=== PATIENT | male | born 1950 | race Caucasian/White ===

== ENCOUNTER 2017-03-09 10:53 | Emergency (ER) | payer OTHER ==
[~2017-03-09] VITALS: Ht 175.3 cm; Wt 135.0 kg
[~2017-03-09 10:53] MED LIST: AMLO5 PO; ASPI325T PO; LANO0.1212 PO; METF500 PO; METO50TA PO
[2017-03-09 11:03] VITALS: BP 150/99; PULSE 102; RESP 20; TEMP 98.2; O2SAT 96
[2017-03-09] MEDS ORDERED: SODIUM CHLOR 0.9% 1000 ML INJ 1,000 ML IV SCH (11:24)
[2017-03-09] MEDS ORDERED: SODIUM CHLORIDE 0.9% FLUSH 10 ML FLUSH IV FLUSH PRN (11:30)
--- NOTE | 2017-03-09 11:31 | PD ---
HPI Chief Complaint: Fall Time Seen by Provider: 11:31 Travel History International Travel<30 days: No Contact w/Intl Traveler<30days: No Traveled to known affect area: No History of Present Illness HPI 67-year-old male with a history of hypertension, atrial fibrillation, diabetes and alcohol abuse is brought to the emergency department for evaluation of trip and fall. The patient states he sprays bug spray in his apartment and was walking from his kitchen to his bedroom and slipped on a wet spot on the tile falling onto his left side. States that he landed on his left knee, left hip and left elbow. States he also landed on his left side and is having some left rib pain. Denies head trauma or loss of consciousness. He states that he did drink a pitcher of beer this morning which he drinks every morning. He denies any anticoagulation. He is complaining of pain in his left knee, left hip, left rib, left elbow and left shoulder. Denies any numbness or tingling, weakness, fever, chills, nausea, vomiting, shortness of breath, difficulty breathing. No other complaints. PFSH Past Medical History Arthritis: Yes Autoimmune Disease: No Blood Disorders: No Anxiety: Yes (PTSD) Depression: No Heart Rhythm Problems: Yes (AFIB, A FLUTTER) Cancer: No Cardiac Catheterization: Yes (Afib) Cardiovascular Problems: Yes High Cholesterol: Yes Chemotherapy: No Chest Pain: No Congestive Heart Failure: No Cerebrovascular Accident: No Diabetes: Yes Patient Takes Glucophage: No Diminished Hearing: No Endocrine: No Gastrointestinal Disorders: Yes (HX POLYPS) Genitourinary: Yes (ENLARGED PROSTATE) Headaches: No Hypertension: Yes Immune Disorder: No Implanted Vascular Access Dvce: No Musculoskeletal: Yes (RIGHT UPPER ARM REPAIR WITH NERVE DAMAGE REPAIR, WC INJ L LEG MUSCLE TEAR) Neurologic: No Psychiatric: Yes Reproductive: No Respiratory: No Immunizations Current: No Migraines: No Radiation Therapy: No Seizures: No Thyroid Disease: No PNEUMOCCOCAL Vaccine (Year): 1 Past Surgical History Abdominal Surgery: No Cardiac Surgery: No Ear Surgery: No Endocrine Surgery: No Eye Surgery: No Genitourinary Surgery: No Neurologic Surgery: No Oral Surgery: Yes Thoracic Surgery: No Other Surgery: Yes (RIGHT ARM, left lower ext. faciatomy.) Social History Alcohol Use: Yes (daily today at 0630 a pitcher) Tobacco Use: No Substance Use: Yes (natty cortes) Allergies-Medications (Allergen,Severity, Reaction): Coded Allergies: Levemir (Verified Allergy, Severe, INTERNAL BLEEDING ACCORDING TO PATIENT , 07/21/16) Reported Meds & Prescriptions Reported Meds & Active Scripts Active Reported Metoprolol Tartrate 50 Mg Tab 50 Mg PO BID Norvasc (Amlodipine Besylate) 5 Mg Tab 5 Mg PO DAILY Lanoxin (Digoxin) 0.125 Mg Tab 0.125 Mg PO DAILY Glucophage (Metformin HCl) 500 Mg Tab 500 Mg PO BIDPC With meals Aspirin 325 Mg Tab 325 Mg PO DAILY Review of Systems Except as stated in HPI: all other systems reviewed are Neg Physical Exam Narrative GENERAL: Obese male patient patient in no acute distress. SKIN: No obvious lacerations or abrasions noted. HEAD: Normocephalic and atraumatic. No bony point tenderness or crepitus noted throughout the scalp and facial bones. EYES: No scleral icterus, injection, or drainage. PERRLA. EOMI. No hyphema present. ENT: No septal hematoma or hemotympanum noted. Oropharynx is clear and the airway is patent. NECK: Supple and the trachea is midline. No obvious deformities, crepitus, or midline tenderness noted. CARDIOVASCULAR: Regular rate and rhythm. RESPIRATORY: Breath sounds are equal bilaterally with no accessory muscle use, wheezing, rhonchi, or crackles. Tenderness to palpation of left anterior lower rib. No obvious deformities or step-offs. GASTROINTESTINAL: Tenderness to palpation left upper quadrant. Abdomen is soft , non-tender, and nondistended. MUSCULOSKELETAL: Painful range of motion in the left knee and hip. Decreased range of motion in the left elbow due to pain. No obvious deformities, cyanosis , or ecchymosis is present throughout the upper and lower extremities. Patient has full range of motion without any signs of neurovascular compromise. BACK: Nontender without any obvious deformities, bony point tenderness, or crepitus noted throughout the thoracic and lumbar vertebrae. NEUROLOGICAL: Awake, alert, and oriented. Normal speech and gait. Cranial nerves are grossly intact. Data Data Last Documented VS Vital Signs Date Time Temp Pulse Resp B/P Pulse Ox O2 Delivery O2 Flow Rate FiO2 03/09/17 11:03 98.2 102 20 150/[address] Brain W/O Iv Contrast(Rout) (03/09/17 11:24) Ct Cerv Spine W/O Contrast (03/09/17 11:24) Complete Blood Count With Diff (03/09/17 11:24) Comprehensive Metabolic Panel (03/09/17 11:24) Iv Access Insert/Monitor (03/09/17 11:24) Ecg Monitoring (03/09/17 11:24) Oximetry (03/09/17 11:24) Sodium Chloride 0.9% Flush (Ns Flush) (03/09/17 11:30) Alcohol (Ethanol) (03/09/17 11:24) Humerus (Min 2vws) (03/09/17 11:24) Knee, Complete (4vws) (03/09/17 11:24) Chest, Single Ap (03/09/17 11:24) Hip, Uni(Ap&Lat) Wo Ap Pelvis (03/09/17 ) Ct Abd/Pel W Iv Contrast(Rout) (03/09/17 11:24) Sodium Chlor 0.9% 1000 Ml Inj (Ns 1000 M (03/09/17 11:24) Apply Cervical Collar (03/09/17 11:24) Elbow, Limited (Ap&Lat) (03/09/17 11:24) Morphine Inj (Morphine Inj) (03/09/17 12:45) Ondansetron Inj (Zofran Inj) (03/09/17 12:45) Iohexol 350 Inj (Omnipaque 350 Inj) (03/09/17 13:03) Splint Or Brace Apply/Monitor (03/09/17 13:22) Labs Laboratory Tests Test 03/09/17 11:20 White Blood Count 8.1 TH/MM3 Red Blood Count 4.80 MIL/MM3 Hemoglobin 15.7 GM/DL Hematocrit 45.0 % Mean Corpuscular Volume 93.7 FL Mean Corpuscular Hemoglobin 32.7 PG Mean Corpuscular Hemoglobin 34.8 % Concent Red Cell Distribution Width 16.3 % Platelet Count 159 TH/MM3 Mean Platelet Volume 7.4 FL Neutrophils (%) (Auto) 69.1 % Lymphocytes (%) (Auto) 21.3 % Monocytes (%) (Auto) 6.9 % Eosinophils (%) (Auto) 1.3 % Basophils (%) (Auto) 1.4 % Neutrophils # (Auto) 5.6 TH/MM3 Lymphocytes # (Auto) 1.7 TH/MM3 Monocytes # (Auto) 0.6 TH/MM3 Eosinophils # (Auto) 0.1 TH/MM3 Basophils # (Auto) 0.1 TH/MM3 CBC Comment AUTO DIFF Differential Comment AUTO DIFF CONFIRMED Sodium Level 130 MEQ/L Potassium Level 4.0 MEQ/L Chloride Level 90 MEQ/L Carbon Dioxide Level 26.8 MEQ/L Anion Gap 13 MEQ/L Blood Urea Nitrogen 10 MG/DL Creatinine 1.09 MG/DL Estimat Glomerular Filtration 67 ML/MIN Rate Random Glucose 256 MG/DL Calcium Level 9.0 MG/DL Total Bilirubin 0.5 MG/DL Aspartate Amino Transf 43 U/L (AST/SGOT) Alanine Aminotransferase 69 U/L (ALT/SGPT) Alkaline Phosphatase 66 U/L Total Protein 7.6 GM/DL Albumin 3.8 GM/DL Ethyl Alcohol Level 72 MG/DL [facility] Medical Decision Making Medical Screen Exam Complete: Yes Emergency Medical Condition: Yes Differential Diagnosis Fracture versus contusion versus sprain versus intracranial hemorrhage Narrative Course 67-year-old male is brought to the emergency department by EMS for evaluation of slip and fall onto his left side. No intraoral loss of consciousness. Patient is afebrile, vital signs are stable. No focal neurologic deficits. He is an alcoholic who drinks alcohol daily. X-ray and CT imaging has been ordered and is pending. He has some left upper quadrant tenderness so we'll do a CT of the abdomen and pelvis to rule out any splenic injury. CBC is unremarkable. CMP shows hyponatremia with a sodium of 130, likely secondary to chronic alcohol use. Hyperglycemia with a glucose of 256. Coags are unremarkable. EtOH is 72. Chest x-ray is unremarkable. Left humerus x-ray is negative. Left knee x-ray shows chondrocalcinosis and degenerative changes, no acute abnormalities. Left hip x-ray is negative for any acute abnormalities. Left elbow x-ray shows minimally displaced intra-articular radial head fracture. CT of the abdomen and pelvis with IV contrast shows contracted bladder with cholelithiasis and mural calcification. A padded megaly and hepatic steatosis. Atherosclerosis. Diverticulosis. No acute abnormalities. Head CT is negative. CT of cervical spine is negative. Patient has remained stable and without complaint or here in the emergency department. Patient is placed in a posterior long-arm splint. I discussed case with my attending physician Dr. Hernandes who agrees it is appropriate to splint the patient and have him follow-up as an outpatient with orthopedist. Patient verbalies understanding and agreement with treatment plan. Diagnosis Primary Impression: Left elbow fracture Qualified Code: S42.402A - Left elbow fracture, closed, initial encounter Additional Impression: Fall Qualified Code: W19.XXXA - Fall, initial encounter Referrals: Orthopedist Patient Instructions: Elbow Fracture in Adults (ED), General Instructions Additional Instructions: Splint. Apply ice for 20 minutes on, 20 minutes off. Take medication as prescribed with food and a full glass of water. Do not take Lortab with alcohol or while driving. Follow-up with an orthopedist in the next 1-2 weeks. Return to the ED for any acute worsening of symptoms. Med/Other Pt SpecificInfo: Prescription(s) given Scripts Hydrocodone-Acetaminophen (Lortab)5-325 Mg Tab1 Tab PO Q6H PRN (PAIN GREATER THAN 6) #20 TAB Ref 0 Prov:Dori Hernandes MD 03/09/17 Disposition: 01 DISCHARGE HOME Condition: Stable Mimi Luz Mar 09, 2017 11:31
[2017-03-09 11:43] LABS: AUTOMATED NEUTROPHIL # 5.6 TH/MM3 (1.8-7.7); BASOPHIL # 0.1 TH/MM3 (0-0.2); BASOPHIL % 1.4 % (0.0-2.0); EOSINOPHIL # 0.1 TH/MM3 (0-0.4); EOSINOPHIL % 1.3 % (0.0-4.0); LYMPH % 21.3 % (9.0-44.0); LYMPHOCYTE # 1.7 TH/MM3 (1.0-4.8); MEAN CELL VOLUME 93.7 FL (80.0-100.0); MEAN CORPUSCULAR HEMOGLOBIN 32.7 PG (27.0-34.0); MEAN CORPUSCULAR HGB CONC 34.8 % (32.0-36.0); MONO % 6.9 % (0.0-8.0); NEUT % 69.1 % (16.0-70.0); PLATELET COUNT 159 TH/MM3 (150-450); RED CELL DISTRIBUTION WIDTH 16.3 % (11.6-17.2); WHITE BLOOD COUNT 8.1 TH/MM3 (4.0-11.0)
[2017-03-09 11:57] LABS: HEMO FLAGS AUTO DIFF
[2017-03-09 12:06] LABS: ALT (GPT) 69 U/L (12-78); ANION GAP 13 MEQ/L (5-15); AST (GOT) 43 U/L (15-37); BICARBONATE 26.8 MEQ/L (21.0-32.0); BLOOD UREA NITROGEN 10 MG/DL (7-18); CHLORIDE 90 MEQ/L (98-107); GLOMERULAR FILTRATION RATE 67 ML/MIN (>89); SODIUM (NA) 130 MEQ/L (136-145)
[2017-03-09 12:09] LABS: ALKALINE PHOSPHATASE 66 U/L (45-117); TOTAL BILIRUBIN ADULT 0.5 MG/DL (0.2-1.0)
[2017-03-09 12:25] LABS: SCAN/DIFF AUTO DIFF CONFIRMED
[2017-03-09] MEDS ORDERED: ONDANSETRON HCL 4 MG/2 ML VIAL IV PUSH ONE (12:45)
[2017-03-09] MEDS ORDERED: MORPHINE SULFATE 4 MG/ML INJ IV PUSH ONE (12:45)
--- NOTE | 2017-03-09 12:53 | RADRPT ---
EXAM DATE/TIME: 03/09/2017 12:18 [facility] COMPARISON: No previous studies available for comparison. INDICATIONS : Left hip pain, fall. MEDICAL HISTORY : None. SURGICAL HISTORY : None. ENCOUNTER: Initial ACUITY: 1 day PAIN SCORE: 8/10 LOCATION: Left proximal hip FINDINGS: Normal bone density. Mild joint space narrowing and acetabular osteophyte formation. No fractures. CONCLUSION: No acute disease. Mak Blair MD on March 09, 2017 at 12:50 Board Certified Radiologist. This report was verified electronically.
--- NOTE | 2017-03-09 12:58 | RADRPT ---
EXAM DATE/TIME: 03/09/2017 12:22 [facility] COMPARISON: No previous studies available for comparison. INDICATIONS : Left knee pain, fall. MEDICAL HISTORY : None. SURGICAL HISTORY : None. ENCOUNTER: Initial ACUITY: 1 day PAIN SCORE: 8/10 LOCATION: Left lateral knee FINDINGS: Chondrocalcinosis at the medial and lateral tibiofemoral compartments with mild narrowing of the medi al tibiofemoral compartment and marginal osteophyte formation of the medial tibial plateau and latera l tibial plateau, spurring of the tibial spines. No significant effusion. Enthesophyte formation at t he quadriceps insertion on the superior pole of the patella. Popliteal artery calcifications. CONCLUSION: Chondrocalcinosis and degenerative changes. Mak Blair MD on March 09, 2017 at 12:56 Board Certified Radiologist. This report was verified electronically.
--- NOTE | 2017-03-09 12:58 | RADRPT ---
EXAM DATE/TIME: 03/09/2017 12:10 [facility] COMPARISON: No previous studies available for comparison. INDICATIONS : Left humerus pain, fall. MEDICAL HISTORY : None. SURGICAL HISTORY : None. ENCOUNTER: Initial ACUITY: 1 day PAIN SCORE: 10/10 LOCATION: Left distal humerus FINDINGS: Two view examination of the left humerus demonstrates no evidence of fracture or dislocation. Bony m ineralization is normal. The soft tissue structures are intact. CONCLUSION: No acute disease. Mak Blair MD on March 09, 2017 at 12:56 Board Certified Radiologist. This report was verified electronically.
--- NOTE | 2017-03-09 13:02 | RADRPT ---
EXAM DATE/TIME: 03/09/2017 11:59 [facility] COMPARISON: CHEST SINGLE AP, February 24, 2016, 2:45. INDICATIONS : Shortness of breath post fall. MEDICAL HISTORY : None. SURGICAL HISTORY : None. ENCOUNTER: Initial ACUITY: 1 day PAIN SCORE: 0/10 LOCATION: Bilateral chest FINDINGS: A single view of the chest demonstrates the lungs to be symmetrically aerated without evidence of mas s, infiltrate or effusion. The cardiomediastinal contours are unremarkable. Osseous structures are intact. CONCLUSION: No acute disease. Judd Kendrick MD on March 09, 2017 at 12:54 Board Certified Radiologist. This report was verified electronically.
[2017-03-09] MEDS ORDERED: IOHEXOL 350 MG/ML 10 ML VIAL (for RAD DIAG) IV ONE (13:03)
--- NOTE | 2017-03-09 13:10 | RADRPT ---
EXAM DATE/TIME: 03/09/2017 12:49 [facility] COMPARISON: CT BRAIN W/O CONTRAST, June 10, 2016, 16:15. INDICATIONS : Slip and fall today, landed on left side RADIATION DOSE: 58.50 CTDIvol (mGy) MEDICAL HISTORY : Cardiovascular disease. Enlarged prostate, history of gastro polyps SURGICAL HISTORY : None. ENCOUNTER: Initial ACUITY: 1 day PAIN SCALE: 3/10 LOCATION: cranial TECHNIQUE: Multiple contiguous axial images were obtained of the head. Using automated exposure control and adj ustment of the mA and/or kV according to patient size, radiation dose was kept as low as reasonably a chievable to obtain optimal diagnostic quality images. DICOM format image data is available electro nically for review and comparison. FINDINGS: CEREBRUM: The ventricles are normal for age. No evidence of midline shift, mass lesion, hemorrhage or acute in farction. No extra-axial fluid collections are seen. POSTERIOR FOSSA: The cerebellum and brainstem are intact. The 4th ventricle is midline. The cerebellopontine angle i s unremarkable. EXTRACRANIAL: The visualized portion of the orbits is intact. SKULL: The calvaria is intact. No evidence of skull fracture. CONCLUSION: Normal examination. Mak Blair MD on March 09, 2017 at 13:07 Board Certified Radiologist. This report was verified electronically.
--- NOTE | 2017-03-09 13:10 | RADRPT ---
EXAM DATE/TIME: 03/09/2017 12:10 [facility] COMPARISON: No previous studies available for comparison. INDICATIONS : Left elbow pain, fall. MEDICAL HISTORY : None. SURGICAL HISTORY : None. ENCOUNTER: Initial ACUITY: 1 day PAIN SCORE: 10/10 LOCATION: Left medial elbow FINDINGS: There is a minimally displaced intra-articular radial head fracture. The lateral view also reveals a lucency overlying the region of the coronoid process which could also be a nondisplaced fracture. The re is a small joint effusion. There is some ossification at the insertion of the triceps tendon and a lso some lateral ligamentous ossification consistent with prior injury. CONCLUSION: Minimally displaced fractures as described Claude Zambrano MD on March 09, 2017 at 12:57 Board Certified Radiologist. This report was verified electronically.
--- NOTE | 2017-03-09 13:14 | RADRPT ---
EXAM DATE/TIME: 03/09/2017 12:58 [facility] COMPARISON: CT ABDOMEN & PELVIS W CONTRAST, July 28, 2014, 2:14. INDICATIONS : Slip and fall today, left side pain IV CONTRAST: 84 cc Omnipaque 350 (iohexol) IV ORAL CONTRAST: No oral contrast ingested. RADIATION DOSE: 22.57 CTDIvol (mGy) MEDICAL HISTORY : Cardiovascular disease. Enlarged prostate, gastro polyps SURGICAL HISTORY : None. ENCOUNTER: Initial ACUITY: 1 day PAIN SCALE: 4/10 LOCATION: Left upper quadrant and lower quardant TECHNIQUE: Volumetric scanning of the abdomen and pelvis was performed. Using automated exposure control and ad justment of the mA and/or kV according to patient size, radiation dose was kept as low as reasonably achievable to obtain optimal diagnostic quality images. DICOM format image data is available electro nically for review and comparison. FINDINGS: There is hepatomegaly and hepatic steatosis. The gallbladder is contracted and there is cholelithiasi s identified and possible mural calcification. The kidneys, adrenal glands, spleen, pancreas are unre markable. Urinary bladder unremarkable. Calcifications of the vas deferens. Prostate unremarkable. Di verticulosis of the sigmoid and descending colon without diverticulitis. No obstruction, free fluid o r free air. No adenopathy or aneurysm. Scattered atherosclerotic calcifications. Lung bases are clear . Degenerative changes of the spine are noted. CONCLUSION: 1. Contracted gallbladder with cholelithiasis and mural calcification. 2. Hepatomegaly and hepatic steatosis. 3. Atherosclerosis. 4. Diverticulosis. Mak Blair MD on March 09, 2017 at 13:09 Board Certified Radiologist. This report was verified electronically.
--- NOTE | 2017-03-09 13:35 | RADRPT ---
EXAM DATE/TIME: 03/09/2017 12:49 [facility] COMPARISON: CT CERVICAL SPINE W/O CONTRAST, June 10, 2016, 16:17. INDICATIONS : Slip and fall today, landed on his left side RADIATION DOSE: 23.05 CTDIvol (mGy) MEDICAL HISTORY : Cardiovascular disease. Enlarged prostate, gastro polyps SURGICAL HISTORY : None. ENCOUNTER: Initial ACUITY: 1 day PAIN SCALE: 3/10 LOCATION: Left neck TECHNIQUE: Volumetric scanning of the cervical spine was performed. Multiplanar reconstructions in the sagittal, coronal and oblique axial planes were performed. Using automated exposure control and adjustment o f the mA and/or kV according to patient size, radiation dose was kept as low as reasonably achievable to obtain optimal diagnostic quality images. DICOM format image data is available electronically f or review and comparison. FINDINGS: Degenerative changes are again noted throughout the cervical spine. Scoliosis of the cervical spine is also noted. There is no acute fracture or prevertebral soft tissue swelling. The bony relationsh ip and alignment between C1 and C2 is well-maintained. Moderate bilateral foraminal narrowing is not ed at C3-4 and C4-5 as well as C6-7. Moderate right neural foraminal narrowing is noted at C5-6 and C2-3. CONCLUSION: 1. No acute fracture or prevertebral soft tissue swelling. 2. Moderate bilateral foraminal narrowing at C3-4, C4-5 and C6-7 and moderate right neural foraminal narrowing at C2-3 and C5-6. 3. Diffuse cervical spondylosis and scoliosis which are stable. Judd Kendrick MD on March 09, 2017 at 13:18 Board Certified Radiologist. This report was verified electronically.
[2017-03-09] MEDS ORDERED: HYDR-3533 PO (13:43)
[2017-03-09 14:11] VITALS: BP 176/110; PULSE 110; RESP 18; O2SAT 96
--- NOTE | 2017-03-09 14:15 | PD ---
Physical Exam Narrative GENERAL: Well-nourished, well-developed patient. SKIN: Warm and dry. HEAD: Normocephalic EYES: No injection or drainage. ENT: No nasal drainage noted. NECK: Supple, trachea midline. No pain in midline CARDIOVASCULAR: Regular rate and rhythm RESPIRATORY: Breath sounds equal bilaterally. No accessory muscle use. GASTROINTESTINAL: Abdomen soft, tender epigastric, nondistended. Chest wall: tender to left lower rib EXTREMITIES: Pain with palpation of left elbow, no pain with other joints , neurovascularly intact, no lacerations over, compartments soft. NEUROLOGICAL: Awake and alert. Motor and sensory grossly within normal limits. Normal speech. Data Data Last Documented VS Vital Signs Date Time Temp Pulse Resp B/P Pulse Ox O2 Delivery O2 Flow Rate FiO2 03/09/17 14:11 110 18 176/110 96 Room Air 03/09/17 11:[address] Brain W/O Iv Contrast(Rout) (03/09/17 11:24) Ct Cerv Spine W/O Contrast (03/09/17 11:24) Complete Blood Count With Diff (03/09/17 11:24) Comprehensive Metabolic Panel (03/09/17 11:24) Iv Access Insert/Monitor (03/09/17 11:24) Ecg Monitoring (03/09/17 11:24) Oximetry (03/09/17 11:24) Sodium Chloride 0.9% Flush (Ns Flush) (03/09/17 11:30) Alcohol (Ethanol) (03/09/17 11:24) Humerus (Min 2vws) (03/09/17 11:24) Knee, Complete (4vws) (03/09/17 11:24) Chest, Single Ap (03/09/17 11:24) Hip, Uni(Ap&Lat) Wo Ap Pelvis (03/09/17 ) Ct Abd/Pel W Iv Contrast(Rout) (03/09/17 11:24) Sodium Chlor 0.9% 1000 Ml Inj (Ns 1000 M (03/09/17 11:24) Apply Cervical Collar (03/09/17 11:24) Elbow, Limited (Ap&Lat) (03/09/17 11:24) Morphine Inj (Morphine Inj) (03/09/17 12:45) Ondansetron Inj (Zofran Inj) (03/09/17 12:45) Iohexol 350 Inj (Omnipaque 350 Inj) (03/09/17 13:03) Splint Or Brace Apply/Monitor (03/09/17 13:22) Labs Laboratory Tests Test 03/09/17 11:20 White Blood Count 8.1 TH/MM3 Red Blood Count 4.80 MIL/MM3 Hemoglobin 15.7 GM/DL Hematocrit 45.0 % Mean Corpuscular Volume 93.7 FL Mean Corpuscular Hemoglobin 32.7 PG Mean Corpuscular Hemoglobin 34.8 % Concent Red Cell Distribution Width 16.3 % Platelet Count 159 TH/MM3 Mean Platelet Volume 7.4 FL Neutrophils (%) (Auto) 69.1 % Lymphocytes (%) (Auto) 21.3 % Monocytes (%) (Auto) 6.9 % Eosinophils (%) (Auto) 1.3 % Basophils (%) (Auto) 1.4 % Neutrophils # (Auto) 5.6 TH/MM3 Lymphocytes # (Auto) 1.7 TH/MM3 Monocytes # (Auto) 0.6 TH/MM3 Eosinophils # (Auto) 0.1 TH/MM3 Basophils # (Auto) 0.1 TH/MM3 CBC Comment AUTO DIFF Differential Comment AUTO DIFF CONFIRMED Sodium Level 130 MEQ/L Potassium Level 4.0 MEQ/L Chloride Level 90 MEQ/L Carbon Dioxide Level 26.8 MEQ/L Anion Gap 13 MEQ/L Blood Urea Nitrogen 10 MG/DL Creatinine 1.09 MG/DL Estimat Glomerular Filtration 67 ML/MIN Rate Random Glucose 256 MG/DL Calcium Level 9.0 MG/DL Total Bilirubin 0.5 MG/DL Aspartate Amino Transf 43 U/L (AST/SGOT) Alanine Aminotransferase 69 U/L (ALT/SGPT) Alkaline Phosphatase 66 U/L Total Protein 7.6 GM/DL Albumin 3.8 GM/DL Ethyl Alcohol Level 72 MG/DL [facility] Supervised Visit with JAJA: Yes Interpretation(s) CBC & BMP Diagram 03/09/17 11:20 Last 24 hours Impressions Knee X-Ray 03/09/17 1124 Signed Impressions: Service Date/Time: Thursday, March 09, 2017 12:22 - CONCLUSION: Chondrocalcinosis and degenerative changes. Mak Blair MD Humerus X-Ray 03/09/17 1124 Signed Impressions: Service Date/Time: Thursday, March 09, 2017 12:10 - CONCLUSION: No acute disease. Mak Blair MD Head CT 03/09/17 1124 Signed Impressions: Service Date/Time: Thursday, March 09, 2017 12:49 - CONCLUSION: Normal examination. Mak Blair MD Elbow X-Ray 03/09/171123 Signed Impressions: Service Date/Time: Thursday, March 09, 2017 12:10 - CONCLUSION: Minimally displaced fractures as described Claude Zambrano MD Chest X-Ray 03/09/171123 Signed Impressions: Service Date/Time: Thursday, March 09, 2017 11:59 - CONCLUSION: No acute disease. Judd Kendrick MD Abdomen/Pelvis CT 03/09/171123 Signed Impressions: Service Date/Time: Thursday, March 09, 2017 12:58 - CONCLUSION: 1. Contracted gallbladder with cholelithiasis and mural calcification. 2. Hepatomegaly and hepatic steatosis. 3. Atherosclerosis. 4. Diverticulosis. Mak Blair MD Hip X-Ray 03/09/17 0000 Signed Impressions: Service Date/Time: Thursday, March 09, 2017 12:18 - CONCLUSION: No acute disease. Mak Blair MD Narrative Course I, Dr. hernandes, have reviewed the advance practice practitioner's documentation and am in agreement, met with the patient face to face, made the diagnosis, and the medical decision making was done by me. *My assessment and Findings: 67-year-old male presents status post fall with left elbow, left rib, left abdominal pain. Imaging reviewed which shows radial head fracture. Splint place. Patient denies new complaints. Clinically sober to discharge. Diagnosis Primary Impression: Left elbow fracture Qualified Code: S42.402A - Left elbow fracture, closed, initial encounter Additional Impression: Fall Qualified Code: W19.XXXA - Fall, initial encounter Referrals: Orthopedist Patient Instructions: General Instructions, Elbow Fracture in Adults (ED) Additional Instruction: Splint. Apply ice for 20 minutes on, 20 minutes off. Take medication as prescribed with food and a full glass of water. Do not take Lortab with alcohol or while driving. Follow-up with an orthopedist in the next 1-2 weeks. Return to the ED for any acute worsening of symptoms. Med/Other Pt SpecificInfo: Prescription(s) given Scripts Hydrocodone-Acetaminophen (Lortab)5-325 Mg Tab1 Tab PO Q6H PRN (PAIN GREATER THAN 6) #20 TAB Ref 0 Prov:Dori Hernandes MD 03/09/17 Disposition: 01 DISCHARGE HOME Condition: Stable Dori Hernandes MD Mar 09, 2017 14:15
== END 2017-03-09 14:35 | disposition home or self-care (01) ==
LOC: NEPC 10:53
DX: S52.122A Displaced fracture of head of left radius, initial encounter for closed fracture (principal); M25.562 Pain in left knee; M25.552 Pain in left hip; R07.81 Pleurodynia; M25.512 Pain in left shoulder; E87.1 Hypo-osmolality and hyponatremia; E11.65 Type 2 diabetes mellitus with hyperglycemia; I10 Essential (primary) hypertension; E78.00 Pure hypercholesterolemia, unspecified; W01.0XXA Fall on same level from slipping, tripping and stumbling without subsequent striking against object, initial encounter; Z79.84 Long term (current) use of oral hypoglycemic drugs; Z87.39 Personal history of other diseases of the musculoskeletal system and connective tissue; Z86.59 Personal history of other mental and behavioral disorders; Z86.79 Personal history of other diseases of the circulatory system; Z87.19 Personal history of other diseases of the digestive system; Z87.438 Personal history of other diseases of male genital organs
CPT/HCPCS: 70450; 71010; 72125; 73060; 73070; 73502; 73564; 74177; 80053; 80307; 85025; 96374; 96375; 99285; J2270; J2405; J7030; L0150; Q9967

== ENCOUNTER 2017-03-11 07:11 | Emergency (ER) | payer OTHER ==
[~2017-03-11] VITALS: Ht 175.3 cm; Wt 135.0 kg
[~2017-03-11 07:11] MED LIST changes: +HYDR-3533 PO
[2017-03-11 07:19] VITALS: BP 175/97; PULSE 77; RESP 19; TEMP 98.2; O2SAT 99
[2017-03-11 07:26] VITALS: BP 175/97; PULSE 76; RESP 19; TEMP 98.2; O2SAT 97
--- NOTE | 2017-03-11 07:39 | PD ---
HPI Chief Complaint: Fall Time Seen by Provider: 08:13 Travel History International Travel<30 days: No Contact w/Intl Traveler<30days: No Traveled to known affect area: No History of Present Illness HPI 67yo M with PMH of HTN, afib, DM, alcohol abuse presents to the ED with persistent left rib pain and knee pain s/p mechanical fall 2 days ago. Pt was evaluated at [facility] and had negative CT brain, cspine, abd/pelvis, chest xray, xray of left knee and xray of left hip. Pt was found to have intra-articular radial head fracture and left arm was placed in a splint. Pt was given lortab but states it did not help with the pain. Denies any further trauma. States tenderness to left rib/upper abdomen with palpation. Denies any fever, chest pain, sob, nausea, vomiting, focal weakness or numbness. PFSH Past Medical History Arthritis: Yes Autoimmune Disease: No Blood Disorders: No Anxiety: Yes (PTSD) Depression: Yes Heart Rhythm Problems: Yes (AFIB, A FLUTTER) Cancer: No Cardiac Catheterization: Yes (Afib) Cardiovascular Problems: Yes High Cholesterol: Yes Chemotherapy: No Chest Pain: No Congestive Heart Failure: No Cerebrovascular Accident: No Diabetes: Yes Patient Takes Glucophage: Yes Diminished Hearing: No Endocrine: No Gastrointestinal Disorders: Yes (HX POLYPS) Genitourinary: Yes (ENLARGED PROSTATE) Headaches: No Hypertension: Yes Immune Disorder: No Implanted Vascular Access Dvce: No Musculoskeletal: Yes (RIGHT UPPER ARM REPAIR WITH NERVE DAMAGE REPAIR, WC INJ L LEG MUSCLE TEAR) Neurologic: No Psychiatric: Yes Reproductive: No Respiratory: No Immunizations Current: No Migraines: No Radiation Therapy: No Seizures: No Thyroid Disease: No Tetanus Vaccination: > 5 Years PNEUMOCCOCAL Vaccine (Year): 1 Past Surgical History Abdominal Surgery: No Cardiac Surgery: No Ear Surgery: No Endocrine Surgery: No Eye Surgery: No Genitourinary Surgery: No Neurologic Surgery: No Oral Surgery: Yes Thoracic Surgery: No Other Surgery: Yes (RIGHT ARM, left lower ext. faciatomy.) Social History Alcohol Use: Yes (daily) Tobacco Use: No Substance Use: Yes (marijuanna occu) Allergies-Medications (Allergen,Severity, Reaction): Coded Allergies: Levemir (Verified Allergy, Severe, INTERNAL BLEEDING ACCORDING TO PATIENT , 03/11/17) Reported Meds & Prescriptions Reported Meds & Active Scripts Active Ibuprofen 600 Mg Tab 600 Mg PO Q8HR PRN Lortab (Hydrocodone-Acetaminophen) 5-325 Mg Tab 1 Tab PO Q6H PRN Reported Metoprolol Tartrate 50 Mg Tab 50 Mg PO BID Norvasc (Amlodipine Besylate) 5 Mg Tab 5 Mg PO DAILY Glucophage (Metformin HCl) 500 Mg Tab 1,000 Mg PO BIDPC With meals Aspirin 325 Mg Tab 325 Mg PO DAILY Review of Systems Except as stated in HPI: all other systems reviewed are Neg Physical Exam Narrative GENERAL: 67yo M in mild distress. SKIN: Focused skin assessment warm/dry. HEAD: Atraumatic. Normocephalic. EYES: Pupils equal and round. No scleral icterus. No injection or drainage. CARDIOVASCULAR: Regular rate and rhythm. No murmur appreciated. RESPIRATORY: No accessory muscle use. Clear to auscultation. Breath sounds equal bilaterally. GASTROINTESTINAL: Abdomen soft, epigastric ttp. No rebound tenderness or guarding. MUSCULOSKELETAL: No obvious deformities. No clubbing. No cyanosis. No edema. NEUROLOGICAL: Awake and alert. No obvious cranial nerve deficits. Motor grossly within normal limits. Normal speech. PSYCHIATRIC: Appropriate mood and affect; insight and judgment normal. Data Data Last Documented VS Vital Signs Date Time Temp Pulse Resp B/P Pulse Ox O2 Delivery O2 Flow Rate FiO2 03/11/17 11:53 69 20 158/73 98 03/11/17 10:46 Room Air 03/11/17 07:26 98.2 Orders Morphine Inj (Morphine Inj) (03/11/17 07:45) Ct Knee W/O Contrast (03/11/17 ) Complete Blood Count With Diff (03/11/17 07:31) Basic Metabolic Panel (Bmp) (03/11/17 07:31) Troponin I (03/11/17 07:31) Electrocardiogram (03/11/17 ) Ribs, Uni (W/Exp Cxr-Min 3vw) (03/11/17 ) Labs Laboratory Tests Test 03/11/17 08:00 White Blood Count 11.3 TH/MM3 Red Blood Count 4.77 MIL/MM3 Hemoglobin 15.4 GM/DL Hematocrit 45.1 % Mean Corpuscular Volume 94.7 FL Mean Corpuscular Hemoglobin 32.3 PG Mean Corpuscular Hemoglobin 34.1 % Concent Red Cell Distribution Width 16.0 % Platelet Count 158 TH/MM3 Mean Platelet Volume 7.9 FL Neutrophils (%) (Auto) 78.4 % Lymphocytes (%) (Auto) 7.5 % Monocytes (%) (Auto) 12.1 % Eosinophils (%) (Auto) 1.1 % Basophils (%) (Auto) 0.9 % Neutrophils # (Auto) 8.9 TH/MM3 Lymphocytes # (Auto) 0.9 TH/MM3 Monocytes # (Auto) 1.4 TH/MM3 Eosinophils # (Auto) 0.1 TH/MM3 Basophils # (Auto) 0.1 TH/MM3 CBC Comment AUTO DIFF Differential Total Cells 100 Counted Neutrophils % (Manual) 69 % Band Neutrophils % 9 % Lymphocytes % 7 % Monocytes % 8 % Basophils % 2 % Neutrophils # (Manual) 9.4 TH/MM3 Myelocytes 5 % Differential Comment FINAL DIFF MANUAL Atypical Lymphocytes % Sodium Level 127 MEQ/L Potassium Level 4.3 MEQ/L Chloride Level 93 MEQ/L Carbon Dioxide Level 26.3 MEQ/L Anion Gap 8 MEQ/L Blood Urea Nitrogen 13 MG/DL Creatinine 1.17 MG/DL Estimat Glomerular Filtration 62 ML/MIN Rate Random Glucose 313 MG/DL Calcium Level 9.3 MG/DL Troponin I LESS THAN 0.02 NG/ML MDM Medical Decision Making Medical Screen Exam Complete: Yes Emergency Medical Condition: Yes Interpretation(s) EKG: NSR 69bpm. Normal axis. No ST segment elevation or depression. TWI III. Differential Diagnosis Missed fracture vs. contusion vs. DVT Narrative Course 67yo M with persistent left rib and left knee pain after falling 2 days ago. Pt given morphine 6mg IV which helped with pain. Repeated xray of left ribs that showed no displaced rib fracture or acute cardiopulmonary process. Obtain CT left knee and it showed no evidence of traumatic bone injury. Smaller moderate joint effusion. 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 Labs reviewed, WBC 11.3. Corrected sodium 130. Glucose elevated at 313 but no increased anion gap and normal CO2. Pt reevaluated at bedside and does have calf tenderness. However, pt is refusing US lower ext to r/o DVT because he wants to go back and drink alcohol. Left knee is also warmer to touch than right and labs showed increased band at 9%. Although low suspicion for septic joint, would like to do arthrocentesis to rule it out. Pt is refusing arthrocentesis and states he just wants an TERRI bandage and to go home. VS stable. He is nontoxic appearing. AMA: The risks of leaving against medical advice without further evaluation treatment were discussed with the patient. These risks include cardiac dysfunction, cardiac dysrhythmia, possible heart attack, possible stroke or . The patient indicated understanding of these risks and appeared to have the capacity to make this decision. Diagnosis Primary Impression: Left knee pain Qualified Code: M25.562 - Acute pain of left knee Patient Instructions: General Instructions Departure Forms: Tests/Procedures Additional Instructions: Please follow up with your PMD in 1-2 days. Return to the ED if symptoms worsen. Med/Other Pt SpecificInfo: Prescription(s) given Scripts Ibuprofen 600 Mg [id number] Mg PO Q8HR PRN (PAIN) #20 TAB Ref 0 Prov:Linda Glasgow DO 03/11/17 Disposition: 07 AGAINST MEDICAL ADVICE Condition: Stable Linda Glasgow DO Mar 11, 2017 07:39
[2017-03-11] MEDS ORDERED: MORPHINE SULFATE 8 MG/ML INJ IV PUSH ONE (07:45)
[2017-03-11 08:53] LABS: AUTOMATED NEUTROPHIL # 8.9 TH/MM3 (1.8-7.7); BASOPHIL # 0.1 TH/MM3 (0-0.2); BASOPHIL % 0.9 % (0.0-2.0); EOSINOPHIL # 0.1 TH/MM3 (0-0.4); EOSINOPHIL % 1.1 % (0.0-4.0); HEMATOCRIT 45.1 % (39.0-51.0); LYMPH % 7.5 % (9.0-44.0); LYMPHOCYTE # 0.9 TH/MM3 (1.0-4.8); MEAN CELL VOLUME 94.7 FL (80.0-100.0); MEAN CORPUSCULAR HEMOGLOBIN 32.3 PG (27.0-34.0); MEAN CORPUSCULAR HGB CONC 34.1 % (32.0-36.0); MONO % 12.1 % (0.0-8.0); NEUT % 78.4 % (16.0-70.0); PLATELET COUNT 158 TH/MM3 (150-450); RED BLOOD COUNT 4.77 MIL/MM3 (4.50-5.90); WHITE BLOOD COUNT 11.3 TH/MM3 (4.0-11.0)
[2017-03-11 08:59] LABS: HEMO FLAGS AUTO DIFF
[2017-03-11 09:08] LABS: ANION GAP 8 MEQ/L (5-15); BICARBONATE 26.3 MEQ/L (21.0-32.0); BLOOD UREA NITROGEN 13 MG/DL (7-18); CHLORIDE 93 MEQ/L (98-107); GLOMERULAR FILTRATION RATE 62 ML/MIN (>89); POTASSIUM 4.3 MEQ/L (3.5-5.1); SODIUM (NA) 127 MEQ/L (136-145)
--- NOTE | 2017-03-11 09:10 | RADRPT ---
EXAM DATE/TIME: 03/11/2017 07:59 [facility] COMPARISON: No previous studies available for comparison. INDICATIONS : Fell on 03/09/17. Pain left lower, anterior ribs MEDICAL HISTORY : Cardiovascular disease. Diabetes mellitus type II. Hypertension. lt radial head fracture SURGICAL HISTORY : None. ENCOUNTER: Initial ACUITY: 2 days PAIN SCORE: 7/10 LOCATION: Left ribs FINDINGS: Multiple views of the left ribs were performed. There is no evidence of displaced fracture. No dest ructive lesions or areas of periosteal thickening are seen. Expiratory view of the chest is negative for pneumothorax. The mediastinal structures are midline. CONCLUSION: No evidence of displaced rib fracture or acute cardiopulmonary process. Rodney Mcdaniel MD on March 11, 2017 at 8:58 Board Certified Radiologist. This report was verified electronically.
[2017-03-11 09:34] LABS: BANDS 9 % (0-6); BASOPHILS 2 % (0-2); MYELOCYTES 5 % (0-0); NEUTROPHIL # MANUAL DIFF 9.4 TH/MM3 (1.8-7.7); POLYS (SEG NEUTROPHILS) 69 % (16-70); WBC DIFF SAMPLE 100
[2017-03-11 09:42] LABS: SCAN/DIFF FINAL DIFF MANUAL
--- NOTE | 2017-03-11 09:47 | RADRPT ---
EXAM DATE/TIME: 03/11/2017 09:02 [facility] COMPARISON: No previous studies available for comparison. INDICATIONS : Trauma to left Knee due to a fall. RADIATION DOSE: 7.29 CTDIvol (mGy) MEDICAL HISTORY : Cardiovascular disease. Hypertension. Diabetes mellitus type 2. SURGICAL HISTORY : ENCOUNTER: Initial ACUITY: 2 days PAIN SCALE: 8/10 LOCATION: Left knee TECHNIQUE: Volumetric scanning of the knee was performed. Using automated exposure control and adjustment of th e mA and/or kV according to patient size, radiation dose was kept as low as reasonably achievable to obtain optimal diagnostic quality images. DICOM format image data is available electronically for re view and comparison. FINDINGS: BONES: No evidence of fracture. Alignment is within normal limits. JOINTS: Mild to moderate arthropathy is identified in the medial, lateral and patellofemoral joint compartmen ts. The medial and lateral joint compartments demonstrate joint space narrowing with chondrocalcinosi s. There is subchondral sclerosis along the medial tibial plateau. There are no traumatic osteochondr al lesions. The patellofemoral joint demonstrates mild subchondral sclerosis along the articulating surface of the patella. SOFT TISSUES: Small joint effusion is identified. Muscles, tendons and neurovascular structures are grossly unremar kable. No evidence of massor foreign body. CONCLUSION: 1. No evidence of traumatic bone injury. 2. Smaller moderate joint effusion. 3. 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 Rodney Mcdaniel MD on March 11, 2017 at 9:40 Board Certified Radiologist. This report was verified electronically.
[2017-03-11 10:46] VITALS: BP 158/73; PULSE 71; RESP 18; O2SAT 96
[2017-03-11] MEDS ORDERED: IBUP-232 PO (11:31)
[2017-03-11 11:53] VITALS: BP 158/73
--- NOTE | 2017-03-11 15:35 | EKG ---
Date Performed: 03/11/2017 Time Performed: 08:32:54 PTAGE: 67 years EKG: Sinus rhythm MODERATE INTRAVENTRICULAR CONDUCTION DELAY BORDERLINE ECG PREVIOUS TRACING : 06/10/2016 22.32 DOCTOR: Yony Pena Interpretating Date/Time 03/11/2017 15:33:36
== END 2017-03-11 11:58 | disposition left against medical advice (07) ==
LOC: NEPC 07:11
DX: M25.562 Pain in left knee (principal); M25.462 Effusion, left knee; R07.81 Pleurodynia; R94.31 Abnormal electrocardiogram [ECG] [EKG]; I10 Essential (primary) hypertension; I48.91 Unspecified atrial fibrillation; E11.9 Type 2 diabetes mellitus without complications; E78.00 Pure hypercholesterolemia, unspecified; W19.XXXA Unspecified fall, initial encounter; Z79.84 Long term (current) use of oral hypoglycemic drugs; Z87.39 Personal history of other diseases of the musculoskeletal system and connective tissue; Z86.59 Personal history of other mental and behavioral disorders; Z86.79 Personal history of other diseases of the circulatory system; Z87.19 Personal history of other diseases of the digestive system; Z87.438 Personal history of other diseases of male genital organs
CPT/HCPCS: 71101; 73700; 80048; 84484; 85007; 85027; 93005; 96374; 99285; J2270

== ENCOUNTER 2017-03-13 19:15 | Emergency (ER) | payer OTHER ==
[~2017-03-13] VITALS: Ht 177.8 cm; Wt 135.0 kg
[~2017-03-13 19:15] MED LIST changes: +IBUP-232 PO; -LANO0.1212 PO
[2017-03-13 19:24] VITALS: BP 248/110; PULSE 115; RESP 20; TEMP 98.6; O2SAT 97
[2017-03-13] MEDS ORDERED: DIGO0.12 PO (19:30)
--- NOTE | 2017-03-13 20:03 | PD ---
HPI Chief Complaint: Medical Clearance Time Seen by Provider: 19:27 Travel History International Travel<30 days: No Contact w/Intl Traveler<30days: No Traveled to known affect area: No History of Present Illness HPI This ia 67 y.o. male who presents with pain in his left arm. He reports falling at his house last Wednesday, injuring his left knee and arm. He was evaluated in the ED. Imaging showed mild fractures in his left coronoid process. Patient reports being in severe pain. He was discharged with 20 tablets of loratab, but reports using them up by the after his fall. He continues to report being in severe pain, and believes he is unable to take care of himself. He is requesting admission or help getting in contact with a [facility] doctor [facility]. He was given information at his last visit but since he doesn't have access to a phone. He is allergic to Levemir, and is on metoprolol and metformin for HTN and DM respectively. He also has AFib, treated with Amlodipine. [facility] Past Medical History Narrative Medical Reviewed from nurse's note Arthritis: Yes Autoimmune Disease: No Blood Disorders: No Anxiety: Yes (PTSD) Depression: Yes Heart Rhythm Problems: Yes (AFIB, A FLUTTER) Cancer: No Cardiac Catheterization: Yes (Afib) Cardiovascular Problems: Yes High Cholesterol: Yes Chemotherapy: No Chest Pain: No Congestive Heart Failure: No Cerebrovascular Accident: No Diabetes: Yes Patient Takes Glucophage: Yes (03/12/17 0800) Diminished Hearing: No Endocrine: No Gastrointestinal Disorders: Yes (HX POLYPS) Genitourinary: Yes (ENLARGED PROSTATE) Headaches: No Hypertension: Yes Immune Disorder: No Implanted Vascular Access Dvce: No Musculoskeletal: Yes (RIGHT UPPER ARM REPAIR WITH NERVE DAMAGE REPAIR, WC INJ L LEG MUSCLE TEAR) Neurologic: No Psychiatric: Yes Reproductive: No Respiratory: No Immunizations Current: No Migraines: No Radiation Therapy: No Seizures: No Thyroid Disease: No PNEUMOCCOCAL Vaccine (Year): 1 Past Surgical History Abdominal Surgery: No Cardiac Surgery: No Ear Surgery: No Endocrine Surgery: No Eye Surgery: No Genitourinary Surgery: No Neurologic Surgery: No Oral Surgery: Yes Thoracic Surgery: No Other Surgery: Yes (RIGHT ARM, left lower ext. faciatomy.) Social History Alcohol Use: Yes (daily) Tobacco Use: No Substance Use: Yes (natty cortes) Allergies-Medications (Allergen,Severity, Reaction): Coded Allergies: Levemir (Verified Allergy, Severe, INTERNAL BLEEDING ACCORDING TO PATIENT , 03/13/17) Reported Meds & Prescriptions Reported Meds & Active Scripts Active Reported Digoxin 0.125 Mg Tab 0.125 Mg PO DAILY Metoprolol Tartrate 50 Mg Tab 50 Mg PO BID Norvasc (Amlodipine Besylate) 5 Mg Tab 5 Mg PO DAILY Glucophage (Metformin HCl) 500 Mg Tab 1,000 Mg PO BIDPC With meals Review of Systems Except as stated in HPI: all other systems reviewed are Neg Musculoskeletal: Positive: Pain (left forearm, left arm, left knee) Physical Exam Narrative GENERAL: Alert and oriented, in no acute distress. Angry, complains of being in severe pain. SKIN: Warm and dry. HEAD: Atraumatic. Normocephalic. EYES: Pupils equal and round. No scleral icterus. No injection or drainage. ENT: No nasal bleeding or discharge. Mucous membranes pink and moist. NECK: Trachea midline. No JVD. CARDIOVASCULAR: Regular rate and rhythm. RESPIRATORY: No accessory muscle use. Clear to auscultation. Breath sounds equal bilaterally. GASTROINTESTINAL: Abdomen soft, non-tender, nondistended. Hepatic and splenic margins not palpable. MUSCULOSKELETAL: Extremities without clubbing, cyanosis, or edema. Ecchymosis and mild swelling on proximal left forearm. Tender to palpation. No obvious deformity. Mild edema noted in left knee. NEUROLOGICAL: Awake and alert. No obvious cranial nerve deficits. Motor grossly within normal limits. Five out of 5 muscle strength in the arms and legs. Normal speech. PSYCHIATRIC: Appropriate mood and affect; insight and judgment normal. Data Data Last Documented VS Vital Signs Date Time Temp Pulse Resp B/P Pulse Ox O2 Delivery O2 Flow Rate FiO2 03/13/17 19:24 98.6 115 20 248/[address] Knee W/O Contrast (03/13/17 ) Us Leg Venous Doppler (03/13/17 19:47) [employer] Request For Service (03/13/17 19:49) Sling Cradle Arm (03/13/17 ) Fiberglass Splint Elbow Adult (03/13/17 ) ^ Knee Immobilizer (03/13/17 22:31) Immobilizer Knee 20 Inch (03/13/17 ) MDM Medical Decision Making Medical Screen Exam Complete: Yes Emergency Medical Condition: Yes Differential Diagnosis Left forearm fracture, left forearm strain, left knee sprain, torn left meniscus Narrative Course Patient was advised to follow up with an orthopedic doctor at the [facility], where [facility] his medical care. He reports he is unable to contact them on his own and is requesting admission. He agrees to undergo CT scan and doppler of his left leg to rule out life threatening injury. We will help him contact the [facility] for further care. We replaced his left arm splint. Left knee CT scan showed effusion with calcinosis. There is no fracture dislocation. He is placed in a left knee immobilizer. The patient is refusing to leave stating that he can't care for himself at home. We'll keep him here in the emergency department have case management see him in the a.m. Diagnosis Primary Impression: Left knee pain Additional Impressions: Left elbow fracture Poor social situation Disposition: 01 DISCHARGE HOME Condition: Stable Maximo Khalil MD Mar 13, 2017 20:03
--- NOTE | 2017-03-13 21:24 | RADRPT ---
EXAM DATE/TIME: 03/13/2017 20:31 [facility] COMPARISON: US LEG LEFT VENOUS DOPPLER, July 23, 2014, 9:36. INDICATIONS : Left leg edema. MEDICAL HISTORY : Myocardial infarction. Hypercholesterolemia. Hypertension. Arthritis. Atrial fibrillation. Polyps, unspecified. Diabetes. Enlarged prostate. SURGICAL HISTORY : Right leg surgery on 06/10/16 for compartment syndrome. Bilateral leg fasciotomy. Right upper arm repa ir. ENCOUNTER: Initial ACUITY: 3 days PAIN SCORE: 7/10 LOCATION: Left leg. TECHNIQUE: Venous ultrasound of the leg was performed from the inguinal ligament to the proximal calf. Real-mauri e, color Doppler and spectral tracing, compression and augmentation techniques were used. FINDINGS: There is normal compressibility of the deep venous system from the inguinal region to the proximal ca lf. No echogenic clot is seen in the lumen of the common femoral, femoral, popliteal, and posterior tibial veins. There is a normal response of the venous system to proximal and distal augmentation an d respiration. CONCLUSION: No DVT. Claude Faustin MD on March 13, 2017 at 21:21 Board Certified Radiologist. This report was verified electronically.
--- NOTE | 2017-03-13 21:43 | RADRPT ---
EXAM DATE/TIME: 03/13/2017 21:01 [facility] COMPARISON: CT KNEE LEFT W/O CONTRAST, March 11, 2017, 9:02. INDICATIONS : Trauma, fall 3 days ago. RADIATION DOSE: 7.99 CTDIvol (mGy) MEDICAL HISTORY : Cardiovascular disease. Hypertension. Myocardial infarction.Diabetes. SURGICAL HISTORY : None. ENCOUNTER: Initial ACUITY: 3 days PAIN SCALE: 6/10 LOCATION: Left knee TECHNIQUE: Volumetric scanning of the knee was performed. Using automated exposure control and adjustment of th e mA and/or kV according to patient size, radiation dose was kept as low as reasonably achievable to obtain optimal diagnostic quality images. DICOM format image data is available electronically for re view and comparison. FINDINGS: BONES: No evidence of fracture. Alignment is within normal limits. JOINTS: There is a mild effusion. There is chondrocalcinosis seen throughout the medial and lateral joint com partments. SOFT TISSUES: There is superficial soft tissue swelling in the subcutaneous fat. Muscles, tendons and neurovascular structures are grossly unremarkable. No evidence of mass, organized fluid collection, or foreign bod y. CONCLUSION: 1. No fracture seen. 2. Chondrocalcinosis and a joint effusion likely from CPPD disease. Claude Faustin MD on March 13, 2017 at 21:38 Board Certified Radiologist. This report was verified electronically.
== END 2017-03-14 06:14 | disposition home or self-care (01) ==
LOC: NEPE 19:15
DX: M25.562 Pain in left knee (principal); S52.042D Displaced fracture of coronoid process of left ulna, subsequent encounter for closed fracture with routine healing; M25.462 Effusion, left knee; E83.59 Other disorders of calcium metabolism; R45.4 Irritability and anger; I10 Essential (primary) hypertension; E11.9 Type 2 diabetes mellitus without complications; E78.00 Pure hypercholesterolemia, unspecified; W19.XXXD Unspecified fall, subsequent encounter; Z79.84 Long term (current) use of oral hypoglycemic drugs; Z86.59 Personal history of other mental and behavioral disorders; Z87.39 Personal history of other diseases of the musculoskeletal system and connective tissue; Z86.79 Personal history of other diseases of the circulatory system; Z87.19 Personal history of other diseases of the digestive system; Z87.438 Personal history of other diseases of male genital organs
CPT/HCPCS: 29105; 73700; 93971; 99285; L1830